=== PATIENT | male | born 1975 | race Caucasian/White ===

== ENCOUNTER → 2021-07-23 | Outpatient (CLI) | payer OTHER ==
[~2021-07-23] VITALS: Ht 182.9 cm; Wt 84.4 kg
[~2021-07-23] MED LIST: CLON1TAB PO
--- NOTE | 2021-07-23 09:21 | RAD ---
US ABDOMEN OR LOWER BACK LIMITED History: Nausea, epigastric pain. Comparison: None. Technique: Sonographic examination of the right upper quadrant of the abdomen. Findings: Pancreas: Visualized portions are unremarkable. Liver: The liver measures 17.2 cm. Liver echotexture is normal. No focal hepatic lesions. Hepatopet al flow in the portal vein. Gallbladder: No gallstones, wall thickening or pericholecystic fluid. Bile ducts: The common duct measures 4 mm. Right kidney: 10.9 cm length. No mass or hydronephrosis. Aorta/IVC: Visualized portions are unremarkable. Other: No ascites. Impression: 1. No cholelithiasis or acute cholecystitis. Multiple Electronically signed by: Ap Santizo MD (07/23/2021 9:18 AM) [id number]
[2021-07-23] MEDS: SINCALIDE 1.68 MCG in IV NORMAL SALINE 50ML 30 ML IV ONE (10:31)
--- NOTE | 2021-07-23 13:14 | RAD ---
INDICATION: Reason: EPIGASTRIC PAIN, NAUSEA X 1 YEAR / Spl. Instructions: / History: COMPARISON: Ultrasound from same day TECHNIQUE: 5.3mCi of Tc99m Choletec was injected intravenously followed by scintigraphic images of the abdomen. 1.7 mcg of CCK was then injected and a gallbladder ejection fraction was calculated. FINDINGS: Appropriate radiotracer clearance from the blood pool. Appropriate radiotracer excretion into the biliary tree. Prompt passage of contrast into the small bowel. Visualization of the gallbladder prior to the 60 minute time point. Gallbladder ejection fraction is 85 percent. IMPRESSION: * No scintigraphic evidence of acute cholecystitis or high grade biliary obstruction. * No evidence of biliary dyskinesia. Electronically signed by: Chino Almaguer MD (07/23/2021 1:12 PM) [id number]
== END ==
LOC: US 07:36
PROVIDERS: ATTEND Internal Medicine Gastroenterology
DX: R11.0 Nausea (principal); R10.13 Epigastric pain
CPT/HCPCS: 76705; 78227; A9537; J2805